=== PATIENT | male | born 1990 | race African-American/Black ===

== ENCOUNTER 2025-05-15 21:25 | Emergency (ER) | payer OTHER ==
[~2025-05-15] VITALS: Ht 182.9 cm; Wt 84.1 kg
[2025-05-15 21:30] VITALS: BP 138/67; PULSE 82; RESP 16; TEMP 98; O2SAT 100
== END 2025-05-16 00:15 | disposition left against medical advice (07) ==
LOC: EMS 21:25
DX: M25.571 Pain in right ankle and joints of right foot (principal); Z53.21 Procedure and treatment not carried out due to patient leaving prior to being seen by health care provider

== ENCOUNTER → 2025-05-15 | Emergency (ER) | payer SELFPAY | END | disposition left against medical advice (07) | LOC: EMS 21:01 | DX: M25.579 Pain in unspecified ankle and joints of unspecified foot (principal); Z53.21 Procedure and treatment not carried out due to patient leaving prior to being seen by health care provider ==